=== PATIENT | male | born 1970 | race African-American/Black ===

== ENCOUNTER 2022-08-24 20:12 | Outpatient (CLI) | payer OTHER | END 2022-08-24 23:59 | disposition short-term general hospital (02) | LOC: EMS 20:12 | DX: M79.652 Pain in left thigh (principal); M79.89 Other specified soft tissue disorders; R53.1 Weakness; W18.39XA Other fall on same level, initial encounter; Y92.008 Other place in unspecified non-institutional (private) residence as the place of occurrence of the external cause | CPT/HCPCS: A0425; A0429 ==